=== PATIENT | female | born 1960 | race Caucasian/White ===

== ENCOUNTER 2018-09-19 06:20 | Emergency (ER) | payer OTHER ==
[2018-09-19] MEDS ORDERED: ALBUTEROL/IPRATROPIUM 1 VIAL SOL ONE (06:30)
[2018-09-19] MEDS ORDERED: ALBUTEROL/IPRATROPIUM 1 VIAL SOL INH ONE (06:32)
[2018-09-19] MEDS ORDERED: SOLUMEDROL 125 MG/2 ML 125 MG/2 ML PDS IV ONE (06:32)
[2018-09-19 06:37] VITALS: TEMP 97.3
[2018-09-19] MEDS ORDERED: SODIUM CHLORIDE 0.9% FLUSH 10 ML SOL IV PRN (06:45)
[2018-09-19 06:52] VITALS: RESP 20
[2018-09-19] MEDS ORDERED: SOLUMEDROL 125 MG/2 ML 125 MG/2 ML PDS ONE (06:56)
[2018-09-19 07:12] LABS: ABG PH 7.33 (7.35-7.45)
[2018-09-19 07:29] LABS: BASOPHILS % (AUTO) 1 % (0-3); EOSINOPHILS % (AUTO) 2 % (0-9); HEMATOCRIT 55 % (35-47); HEMOGLOBIN 17.3 gm/dl (12.0-15.5); LYMPHOCYTES % (AUTO) 15.1 % (10-50); MEAN CORPUSCULAR HEMOGLOBIN 30.1 pg (27.0-32.0); MEAN CORPUSCULAR HGB CONC 31.3 gm/dl (32.0-36.0); MEAN CORPUSCULAR VOLUME 96 fL (81-99); MONOCYTES % (AUTO) 9.1 % (0-12); NEUTROPHILS % (AUTO) 72.2 % (37-80)
[2018-09-19 07:48] LABS: BLOOD UREA NITROGEN 10 mg/dl (7-18); CALCIUM 8.7 mg/dl (8.5-10.1); CARBON DIOXIDE 31.5 mEq/L (21-32); CHLORIDE 103 mMol/L (98-107); CREATININE 0.65 mg/dl (0.60-1.00); GLUCOSE 118 mg/dl (74-106); TROP I < 0.017 ng/ml (0.000-0.056)
[2018-09-19 09:06] VITALS: PULSE 82
[2018-09-19] MEDS ORDERED: AZITHROMYCIN 250 MG TAB PO ONE (09:28)
[2018-09-19] MEDS ORDERED: AZITHROMYCIN 250 MG TAB ONE (09:30)
[2018-09-19 09:55] VITALS: BP 126/78; O2SAT 92
== END 2018-09-19 10:08 | disposition home or self-care (01) | DRG 191 ==
LOC: ED 06:20
DX: J44.1 Chronic obstructive pulmonary disease with (acute) exacerbation (principal); E87.2 Acidosis; R06.02 Shortness of breath; R05 Cough; Z59.0 Homelessness; J43.9 Emphysema, unspecified; Z72.0 Tobacco use
CPT/HCPCS: 36600; 71046; 80048; 82803; 83880; 84484; 85025; 93005; 96374; 99284; 99285; J2930; A9270-GY

== ENCOUNTER 2018-10-06 06:02 | Emergency (ER) | payer OTHER | END 2018-10-06 09:49 | disposition short-term general hospital (02) | LOC: ED 06:02 ==